=== PATIENT | male | born 1970 | race Caucasian/White ===

== ENCOUNTER 2019-09-14 17:52 | Emergency (ER) | payer MEDICAID ==
[~2019-09-14] VITALS: Ht 167.6 cm; Wt 117.9 kg
--- NOTE | 2019-09-14 17:58 | NUR ---
PT IS A/OX4, BIB RA100, C/O HYPOTENSION. PER DELIVERY HELPER'S REPORT, PT RECENTLY HAD HERNIA REPAIR AT [facility] AND D/C. PT'S FAMILY CALLED 911 DUE TO PT BEING PALE, COOL, AND DIAPHORETIC. PT'S VS 90/47, HR 76 IN THE FIELD. PT IS DIAPHORETIC AT THIS TIME, BUT CAP REFILL < 3 SECS, RESPIRATIONS EVEN AND UNLABORED. PT DENIES PAIN, C/P, SOB, N/V/D, DIZZINESS, HEADACHE.
[2019-09-14] MEDS ORDERED: IV NORMAL SALINE 1000 ML BAG IV ONE (19:00)
--- NOTE | 2019-09-14 19:04 | NUR ---
SHIFT REPORT GIVEN TO AIDAN RAMIRES. PT RESTING COMFORTABLY IN BED W/ FAMILY AT BEDSIDE.
[2019-09-14 19:05] LABS: BASOPHILS # (AUTO) 0.2 K/uL (0.0-8.0); EOSINOPHILS # (AUTO) 0.1 K/uL (0.0-0.7); EOSINOPHILS % (AUTO) 0.3 % (0.0-7.0); HEMATOCRIT 33.1 % (36.7-47.1); HEMOGLOBIN 9.8 g/dL (12.5-16.3); LYMPHOCYTES % (AUTO) 5.6 % (20.5-51.5); MEAN CORPUSCULAR HGB CONC 30 g/dL (32.5-36.3); MEAN CORPUSCULAR VOLUME 67.3 fL (73.0-96.2); MONOCYTES % (AUTO) 5.8 % (0.0-11.0); NEUTROPHILS # (AUTO) 15.2 K/uL (1.8-8.9); NEUTROPHILS % (AUTO) 87.3 % (38.5-71.5); PLATELET COUNT (AUTO) 345 K/uL (152-348); RED BLOOD CELL COUNT(AUTO) 4.92 MIL/uL (4.06-5.63); WHITE BLOOD COUNT (AUTO) 17.3 K/uL (3.6-10.2)
[2019-09-14 19:19] LABS: BILIRUBIN,DIRECT 0.1 mg/dL (0.0-0.2); BILIRUBIN,TOTAL 0.3 mg/dL (0.2-1.0); CREATININE 1.3 mg/dL (0.6-1.3); POTASSIUM 4.7 mmol/L (3.5-5.1); TOTAL PROTEIN, SERUM 7.8 g/dL (6.4-8.2)
--- NOTE | 2019-09-14 19:40 | NUR ---
Patient in bed with family at bedside AA&O x4. Breathing even and unlabored. Denies any pain or discomfort at this time.
[2019-09-14 20:05] LABS: LYMPHOCYTES % (MANUAL) 4 % (20-40); MONOCYTES % (MANUAL) 5 % (2-10); NEUTROPHILS % (MANUAL) 91 % (42-75)
--- NOTE | 2019-09-14 20:08 | NUR ---
Patient discharged to home in stable conditon. Written and verbal after care instructions given. Patient verbalizes understanding of instructions. Family at bedside to take patient home. IV 18G removed. Catheter intact and site benign. Pressure and 4x4 gauze applied to site. No bleeding noted.
--- NOTE | 2019-09-14 20:08 | NUR ---
Patient amble to ambulate to wheel chair without assistance. wheeled patient to family car in stable condition. NAD noted. Denies any pain or discomfort
[2019-09-14 20:09] VITALS: BP 116/73
== END 2019-09-14 20:08 | disposition home or self-care (01) ==
LOC: ER 17:54
DX: R55 Syncope and collapse (principal); R19.7 Diarrhea, unspecified; I25.2 Old myocardial infarction; I10 Essential (primary) hypertension
CPT/HCPCS: 36415; 70030-TC; 71045; 83690; 85025; 93005; A4663; J7030